=== PATIENT | male | born 1930 | race Caucasian/White ===

== ENCOUNTER 2017-11-03 05:35 | Inpatient (IN) | payer OTHER, MEDICAID ==
[~2017-11-03] VITALS: Ht 170.2 cm; Wt 61.2 kg
--- NOTE | 2017-11-03 05:35 | NUR ---
Patient BIBA BLS, transferred to bed 10. RN evaluating patient at bedside.
[2017-11-03 05:37] VITALS: BP_SYST 154; BP_DIAS 122; BP_DIAS 84
--- NOTE | 2017-11-03 05:37 | NUR ---
Dr. Salvador evaluating patient at bedside.
--- NOTE | 2017-11-03 05:38 | NUR ---
PATIENT IS A 87 Y/O MALE WHO PRESENTS TO THE ED C/O LACERATION. [facility] STATES THAT PT HAD A PAIR OF SCISSORS AND CUT UP BOTH HIS ARMS. PT APPEARS TO BE IN 10/10 ACHING BILATERAL ARM PAIN THAT DOES NOT RADIATE. PT DENIES CP, SOB, N/V/D. PT AAOX3, RR EVEN/UNLABORED. PT REPOSITIONED FOR COMFORT, BED IN LOWEST POSITION. RANDEE ELAINE NOTIFIED. WILL CONTINUE TO MONITOR. Addendum: 11/03/17 at 0603 by MEDDCV PATIENT IS A 87 Y/O MALE WHO PRESENTS TO THE ED C/O LACERATION. [facility] STATES THAT PT HAD A PAIR OF SCISSORS AND CUT UP BOTH HIS ARMS. PT APPEARS TO BE IN 10/10 ACHING BILATERAL ARM PAIN THAT DOES NOT RADIATE. PT DENIES CP, SOB, N/V/D. PT AAOX2, RR EVEN/UNLABORED. PT REPOSITIONED FOR COMFORT, BED IN LOWEST POSITION. RANDEE ELAINE NOTIFIED. WILL CONTINUE TO MONITOR. NOTED LEUNG AND PACEMAKER. Addendum: 11/03/17 at 0606 by MEDDCV PATIENT IS A 87 Y/O MALE WHO PRESENTS TO THE ED C/O LACERATION. [facility] STATES THAT PT HAD A PAIR OF SCISSORS AND CUT UP BOTH HIS ARMS. PT APPEARS TO BE IN 10/10 ACHING BILATERAL ARM PAIN THAT DOES NOT RADIATE. NOTED SKIN TEAR TO BILATERAL ARMS. R ARM DEEP TEAR TO DEEP TISSUE, BLEEDING. L ARM SKIN TEARS AND CONTROLLED BLEEDING. PUNCTURE WOUNDS POSTERIOR RIGHT FOREARM AND RIGHT HAND. PT DENIES CP, SOB, N/V/D. PT AAOX3, RR EVEN/UNLABORED. PT REPOSITIONED FOR COMFORT, BED IN LOWEST POSITION. ER MD DR. ELAINE NOTIFIED. WILL CONTINUE TO MONITOR.
[2017-11-03] MEDS ORDERED: MORPHINE SULFATE 4 MG/ML SYR IM ONE (05:45)
[2017-11-03] MEDS ORDERED: MORPHINE SULFATE 4 MG/ML SYR ONE ×2 (05:46→06:47)
[2017-11-03] MEDS ORDERED: diphenhydrAMINE 50 MG/ML VIAL ONE (05:47)
[2017-11-03] MEDS ORDERED: diphenhydrAMINE 50 MG/ML VIAL IM ONE (06:00)
--- NOTE | 2017-11-03 06:05 | NUR ---
Patient noted to have existing wounds upon arrival to ER. Wound covered with dressing. Physician informed.
--- NOTE | 2017-11-03 06:15 | NUR ---
CALLED [facility] REGARDING INQUIRING ON HOW PT GOT SCISSORS. NO RESPONSE.
[2017-11-03] MEDS ORDERED: ceFAZolin 1,000 MG VIAL ONE (06:24)
--- NOTE | 2017-11-03 06:25 | NUR ---
2ND CALL TO [facility] REGARDING INQUIRING ON HOW PT GOT SCISSORS. NO RESPONSE.
[2017-11-03 06:32] LABS: BASOPHILS % (AUTO) 0.5 % (0.0-2.0); EOSINOPHILS # (AUTO) 0.4 K/uL (0-0.4); EOSINOPHILS % (AUTO) 4.4 % (0.0-4.0); HEMATOCRIT 35.1 % (36-52); HEMOGLOBIN 11.2 g/dL (12.0-18.0); LYMPHOCYTES % (AUTO) 12.3 % (20.5-51.1); MEAN CORPUSCULAR HEMOGLOBIN 27 pg (27-31); MEAN CORPUSCULAR HGB CONC 32 g/dL (33-37); MEAN CORPUSCULAR VOLUME 85.3 fL (80-94); MONOCYTES # (AUTO) 0.7 K/uL (0.8-1.0); MONOCYTES % (AUTO) 8.7 % (1.7-9.3); NEUTROPHILS % (AUTO) 74.1 % (42.2-75.2); PLATELET COUNT (AUTO) 176 K/uL (140-450); RED BLOOD CELL COUNT(AUTO) 4.11 MIL/uL (4.20-6.10); RED CELL DISTRIBUTION WIDTH 16.5 % (11.6-13.7); WHITE BLOOD COUNT (AUTO) 8.1 K/uL (4.8-10.8)
[2017-11-03] MEDS ORDERED: BACITRACIN OINT 500 UNITS/GM PKT TP ONE ×2 (06:43→06:49)
[2017-11-03 06:53] LABS: ALBUMIN 3.4 g/dL (3.4-5.0); ASPARTATE AMINOTRANSFERASE 21 U/L (15-37); CARBON DIOXIDE 25.7 mmol/L (21-32); CHLORIDE 105 mmol/L (98-107); CREATININE 1.2 mg/dL (0.7-1.3); GLUCOSE 94 mg/dL (74-106); POTASSIUM 3.7 mmol/L (3.5-5.1); SODIUM SERUM 140 mmol/L (136-145); TOTAL BILIRUBIN 0.9 mg/dL (0.0-1.0); UREA NITROGEN, BLOOD 26 mg/dL (7-18)
--- NOTE | 2017-11-03 07:06 | NUR ---
xray at bedside
[2017-11-03] MEDS ORDERED: MORPHINE SULFATE 4 MG/ML SYR IVP ONE (07:10)
[2017-11-03] MEDS ORDERED: SYN.1 PO (07:12)
[2017-11-03] MEDS ORDERED: WARF3TAB PO (07:12)
[2017-11-03] MEDS ORDERED: METO25TE2 PO (07:12)
--- NOTE | 2017-11-03 07:13 | NUR ---
Pt report given to KYLE BRANDT. Transfer of care at this time.
--- NOTE | 2017-11-03 07:13 | NUR ---
REPORT RECEIVED FROM JEREMY BRANDT. X RAY AT BED SIDE. PT LYING IN BED AOX2 TO NAME AND PLACE. NO S/S OF PAIN OR DISTRESS. BUE REMAIN DRY CLEAN AND INTACT. GOOD PMS AND MOVING BOTH EXTREMITIES EQUALLY.
[2017-11-03 07:18] LABS: PROTHROMBIN TIME 13.7 secs (10.8-13.4)
[2017-11-03] MEDS: NACL 0.9% 1,000 ML IV SCH ×2 (07:18→23:58)
[2017-11-03] MEDS ORDERED: ACETAMINOPHEN 325 MG TAB PO PRN (07:20)
[2017-11-03] MEDS ORDERED: DOCUSATE SODIUM 100 MG GELCAP PO PRN (07:20)
[2017-11-03] MEDS ORDERED: ONDANSETRON 4 MG/2 ML VIAL IM/IVP PRN (07:20)
[2017-11-03] MEDS ORDERED: HYDROcodone/APAP 7.5/325 MG 1 TAB PO PRN (07:20)
--- NOTE | 2017-11-03 07:34 | NUR ---
EKG AT BEDSIDE [facility]
--- NOTE | 2017-11-03 08:00 | NUR ---
Patient will be admitted to care of DR MA. Admited to TELE. Will go to [id number]. Belongings list completed. Report to GREG BRANDT.
--- NOTE | 2017-11-03 08:10 | NUR ---
RECEIVED PT REPORT FROM ER NURSE. LACERATION TO BOTH ARMS. WRAPPED WITH POLLO DRESSING AT THIS TIME. PT AAOX1. NO SOB ON ROOM AIR. NO S/S OF DISTRESS NOTED. RR EVEN/UNLABORED. IV TO LEFT AC 20G, PATENT AND INTACT. SKIN WARM AND DRY TO TOUCH, COLOR WNL. CAP REFILL LESS THAN 3 SEC. INITIAL ASSESSMENT COMPLETED, MRSA DONE. PT HAS LEUNG LEG BAG. PLAN OF CARE DISCUSSED WITH PT, REINFORCEMENT NEEDED. ALL SAFETY PRECAUTIONS MET, BOARD UPDATED, CALL LIGHT WITHIN REACH, WILL CONTINUE TO MONITOR.
[2017-11-03 08:30] VITALS: BP 145/81
--- NOTE | 2017-11-03 08:30 | NUR ---
RIGHT ARM SEEMS STILL BLEEDING. REWRAPPED DRESSING WITH ADAPTIC AND XEROFOAM AND POLLO AND SOL BANDAGE. PIC OF RIGHT ARM TAKEN. LEFT ARM DRESSING IS CLEAN AND DRY. NO DRESSING CHANGE FOR LEFT ARM PERFORMED AT THIS TIME
[2017-11-03 08:50] LABS: CHOL/HDL RATIO 2.9 (1-4.5); FREE T4 (FREE THYROXINE) 1.23 ng/dL (0.76-1.46); MAGNESIUM 1.8 mg/dL (1.8-2.4); PHOSPHORUS 3.4 mg/dL (2.5-4.9); THYROID STIMULATING HORMONE 1.64 uIU/mL (0.34-3.74)
--- NOTE | 2017-11-03 08:57 | NUR ---
PATIENT HAS BEEN SCREENED AND CATEGORIZED HIGH NUTRITION RISK. PATIENT WILL BE SEEN WITHIN 1-2 DAYS OF ADMISSION. 11/03/17-11/04/[address]
[2017-11-03] MEDS ORDERED: PANTOPRAZOLE 40 MG TABEC PO SCH (09:00)
--- NOTE | 2017-11-03 09:10 | NUR ---
SWITCH LEG BAG TO A STANDARD LEUNG CATH BAG. URINE IS CLOUDY YELLOW. SENT URINE SPECIMEN TO LAB.
[2017-11-03 11:04] LABS: APPEARANCE,URINE CLOUDY (CLEAR); BILIRUBIN,URINE NEGATIVE (NEGATIVE); BLOOD, URINE 1+ (NEGATIVE); COLOR,URINE YELLOW (YELLOW); LEUKOCYTE ESTERASE ,URINE 3+ (NEGATIVE); NITRITE, URINE POSITIVE (NEGATIVE); UGLUCOSE NEGATIVE (NEGATIVE)
[2017-11-03 11:11] LABS: WBC,URINE 20-60 /HPF (0-5)
[2017-11-03 11:12] LABS: RBC,URINE 0-5 (RARE) /HPF (0-5)
[2017-11-03 12:00] VITALS: BP_SYST 108; BP_SYST 138; BP_DIAS 54; BP_DIAS 77
--- NOTE | 2017-11-03 12:32 | NUR ---
Social Service Note: I called [facility] multiple times to obtain information about patient, no answer, no answering machine, unable to leave message. Wood Window And Door Craftsman and/or Veterinary Medicine Teacher will continue to follow up.
[2017-11-03 16:00] VITALS: BP 169/99
[2017-11-03] MEDS ORDERED: METOPROLOL 25 MG TAB PO SCH (16:40)
--- NOTE | 2017-11-03 16:50 | NUR ---
PT TRYING TO GET OF OUT OF BED, TOLD PT TO STAY IN BED AND LYING DOWN. PT IS CONFUSED. PT IS STILL COOPERATIVE. NO S/S OF AGITATION.
[2017-11-03] MEDS ORDERED: METOPROLOL 25 MG TAB ONE (17:56)
[2017-11-03] MEDS: WARFARIN 1 MG TAB PO SCH (18:29)
--- NOTE | 2017-11-03 18:40 | NUR ---
PT TRYING TO GET OUT OF BED. PLACE PT BACK TO BED. CHECKED IV, FLUSHED WELL, BLOOD RETURN GOOD.
--- NOTE | 2017-11-03 19:50 | NUR ---
RECEIVED PATIENT LYING BED TRYING TO GET OUT OF BED. BED IN LOW POSITION WITH CALL LIGHT WITHIN REACH.BED ALARM ON. CHECK BP 127/59. METROPOLOL 25 MG. NOT GIVEN. RETURN TO [facility]. WILL CONTINUE TO MONITOR.
--- NOTE | 2017-11-03 19:59 | NUR ---
ENDORSED PT TO RISK AND COMPLIANCE ANALYTICS DIRECTOR RN. PT IN STABLE CONDITION. GAVE METOPROLOL 25MG TO RISK AND COMPLIANCE ANALYTICS DIRECTOR, PLEASE VERIFIED BP BEFORE GIVING IT. Addendum: 11/03/17 at 2000 by Douglas Aguilera RN TIME OF ENDORSEMENT IS 1929
[2017-11-03 20:00] VITALS: BP 127/59
[2017-11-03] MEDS: CLINDAMYCIN PHOS. 600MG/D5W PM 50 ML IV SCH (20:58)
--- NOTE | 2017-11-03 21:40 | NUR ---
SEEN PATIENT LYING ASLEEP ON BED. FALL PRECAUTION IMPLEMENTED. CALL LIGHTS WITHIN REACH. WILL CONTINUE TO MONITOR.
--- NOTE | 2017-11-03 22:53 | NUR ---
RESIDENT NOTIFIED TO ORDER MRSA NARES IN THE SYSTEM. SPECIMEN ALREADY IN THE LAB.
[2017-11-04] VITALS: BP 138/89
--- NOTE | 2017-11-04 01:14 | NUR ---
SEEN PATIENT ASLEEP ON BED BUT EASILY AROUSABLE. FALL PRECAUTION IMPLEMENTED. CALL LIGHT WITHIN REACH. WILL CONTINUE TO MONITOR.
[2017-11-04] MEDS: NACL 0.9% 1,000 ML IV SCH (02:42)
--- NOTE | 2017-11-04 03:16 | NUR ---
SEEN PATIENT ASLEEP. FALL PRECAUTION IMPLEMENTED. CALL LIGHT WITHIN REACH.
[2017-11-04 04:00] VITALS: BP 123/68
--- NOTE | 2017-11-04 05:00 | NUR ---
PICTURE TAKEN ON THE LEFT HAND. WOUND COVERED WITH XEROFORM AND KERLIX. PATIENT WAS COOPERATIVE DURING THE TREATMENT AND TOLERATED WELL.
[2017-11-04] MEDS: CLINDAMYCIN PHOS. 600MG/D5W PM 50 ML IV SCH ×3 (05:18→20:36)
[2017-11-04] MEDS: PANTOPRAZOLE 40 MG TABEC PO SCH (06:25)
[2017-11-04] MEDS: LEVOTHYROXINE 0.1 MG TAB PO SCH (06:25)
--- NOTE | 2017-11-04 07:13 | NUR ---
ENDORSED PATIENT TO AM SHIFT NURSE FOR CONTINUITY OF CARE. PATIENT IN STABLE CONDITION.
--- NOTE | 2017-11-04 07:30 | NUR ---
RECEIVED PATIENT REPORT FROM ARMORED TRANSPORT SERVICE MANAGER RN. PT IS AWAKE, ALERT, OX1. NO S/S OF ACUTE DISTRESS ON RM AIR. IV NOTED TO THE LEFT AC 22G, INFUSING WELL, ASYMPTOMATIC. LEUNG DRAINING CLOUDY YELLOW URINE. VITALS TAKEN. INITIAL ASSESSMENT DONE. FALL PRECAUTIONS IN PLACE. BED IN LOW POSITION. WILL WILL CONTINUE TO MONITOR.
[2017-11-04 08:00] VITALS: BP 148/89
--- NOTE | 2017-11-04 09:00 | NUR ---
DR HINOJOSA HAS WRAPPED THE DRESSING FOR THE RIGHT ARM.
[2017-11-04] MEDS: METOPROLOL SUCCINATE 50 MG TABER PO SCH (09:02)
[2017-11-04 09:25] LABS: ANION GAP 12.9 (8-16); CARBON DIOXIDE 25.1 mmol/L (21-32); CHLORIDE 104 mmol/L (98-107); GLUCOSE 77 mg/dL (74-106); SODIUM SERUM 138 mmol/L (136-145); UREA NITROGEN, BLOOD 20 mg/dL (7-18)
[2017-11-04 09:26] LABS: PROTHROMBIN TIME 19.2 secs (10.8-13.4)
[2017-11-04 09:28] LABS: MAGNESIUM 1.8 mg/dL (1.8-2.4); PHOSPHORUS 3.2 mg/dL (2.5-4.9)
[2017-11-04 09:34] LABS: BASOPHILS # (AUTO) 0.1 K/uL (0.00-0.22); BASOPHILS % (AUTO) 1.6 % (0.0-2.0); EOSINOPHILS # (AUTO) 0.4 K/uL (0-0.4); EOSINOPHILS % (AUTO) 5.2 % (0.0-4.0); HEMOGLOBIN 11.3 g/dL (12.0-18.0); LYMPHOCYTES # (AUTO) 1.2 K/uL (2.0-11.5); MEAN CORPUSCULAR HEMOGLOBIN 28 pg (27-31); MEAN CORPUSCULAR HGB CONC 33 g/dL (33-37); MEAN CORPUSCULAR VOLUME 84.5 fL (80-94); MONOCYTES # (AUTO) 0.5 K/uL (0.8-1.0); MONOCYTES % (AUTO) 7.6 % (1.7-9.3); NEUTROPHILS # (AUTO) 4.8 K/uL (1.8-7.7); NEUTROPHILS % (AUTO) 68.5 % (42.2-75.2); RED BLOOD CELL COUNT(AUTO) 4.03 MIL/uL (4.20-6.10)
[2017-11-04 10:02] LABS: LYMPHOCYTES % (AUTO) 17.1 % (20.5-51.1); PLATELET COUNT (AUTO) 163 K/uL (140-450)
[2017-11-04 12:00] VITALS: BP 147/75
--- NOTE | 2017-11-04 12:08 | NUR ---
PT EATING LUNCH, NO S/S OF ACUTE DISTRESS NOTED.
[2017-11-04 12:10] LABS: T4 (THYROXINE) 8.4 ug/dL (4.5-12.0)
--- NOTE | 2017-11-04 14:10 | NUR ---
11/04/17 RD INITIAL ASSESSMENT COMPLETED. PLEASE REFER TO NUTRITION ASSESSMENT UNDER CARE ACTIVITY FOR ESTIMATED NUTRITIONAL NEEDS. RD RECOMMENDATIONS: 1- RECOMMEND CONTINUE CURRENT DIET SOFT - PT TOLERATING WELL AND SUFFICIENT TO MEET ESTIMATED NEEDS 2- FDI EDUCATIONAL MATERIAL LEFT BY PT'S BEDSIDE 3- F/U 5-7 DAYS; LOW RISK ROXY GRAY MBA, RD
[2017-11-04 16:00] VITALS: BP 108/72
--- NOTE | 2017-11-04 16:20 | NUR ---
HELPED PT AMB TO RESTROOM. PT SAT DOWN ON TOILET FOR 1 MIN, NO BM. HELPED PT AMB BACK TO BED.
[2017-11-04] MEDS: WARFARIN 1 MG TAB PO SCH (16:47)
--- NOTE | 2017-11-04 19:25 | NUR ---
PT REPORT GIVEN TO BOX PULLER NURSE AT BEDSIDE. PATIENT IS IN STABLE CONDITION
--- NOTE | 2017-11-04 19:26 | NUR ---
RECEIVED PT REPORT FROM DAY NURSE GREG. PT IN STABLE CONDITION, NO S/S OF DISTRESS NOTED. PT HAS LACERATION TO BOTH ARMS. WRAPPED WITH POLLO DRESSING AT THIS TIME. DRESSINGS DRY AND INTACT.PT AAOX1. NO SOB ON ROOM AIR. NO S/S OF DISTRESS NOTED. RR EVEN/UNLABORED. IV TO LEFT AC 20G, PATENT AND INTACT. SKIN WARM AND DRY TO TOUCH, COLOR WNL. CAP REFILL LESS THAN 3 SEC. INITIAL ASSESSMENT COMPLETED. PT HAS LEUNG LEG BAG. PLAN OF CARE DISCUSSED WITH PT, REINFORCEMENT NEEDED. ALL SAFETY PRECAUTIONS MET, BOARD UPDATED, CALL LIGHT WITHIN REACH, WILL CONTINUE TO MONITOR.
[2017-11-04 20:00] VITALS: BP 144/65
--- NOTE | 2017-11-04 21:00 | NUR ---
PT AGITATED TRYING TO GET OUT OF BED, BED ALARM IN PLACE, REMINDED PT HE IS IN HOSPITAL AND TO STAY IN BED, PT SWINGING HIS ARMS AT ME AND SECURITY ORDERLY AND YELLING, "NO"; PT REPEATING TO LOOK OUT FOR THE MAN THAT'S COMING
--- NOTE | 2017-11-04 21:15 | NUR ---
BED ALARM WENT OFF AGAIN. PT TRYING TO GET OUT OF BED, PUT PT BACK IN BED, PT STILL YELLING THAT HE IS NEEDING TO PUT ON PANTS AND GO TO WHERE THE MAN IS.
--- NOTE | 2017-11-04 21:35 | NUR ---
PT STILL TRYING TO GET OUT OF BED, TOLD PT HE NEEDS TO STAY IN BED BECAUSE HE IS A FALL RISK, PT STATES HE IS GOING TO AND ITS OKAY IF HE FALLS. I EXPLAINED TO PT HE IS IN HOSPITAL AND IT IS NOT OKAY IF HE FALLS AND HIS SAFETY IS OF OUR IMPORTANCE. PT STATES, "OH OKAY" AND GOT BACK INTO BED
--- NOTE | 2017-11-04 23:30 | NUR ---
PT RESTING COMFORTABLY IN BED, NO S/S OF DISTRESS NOTED.
[2017-11-05] VITALS: BP 132/62
--- NOTE | 2017-11-05 01:00 | NUR ---
PT RESTING COMFORTABLY IN BED, NO S/S OF DISTRESS NOTED.
--- NOTE | 2017-11-05 02:00 | NUR ---
PT RESTING COMFORTABLY IN BED, NO S/S OF DISTRESS NOTED.
[2017-11-05 04:00] VITALS: BP 143/68
--- NOTE | 2017-11-05 04:59 | NUR ---
PT RESTING COMFORTABLY IN BED, NO S/S OF DISTRESS NOTED.
[2017-11-05] MEDS: CLINDAMYCIN PHOS. 600MG/D5W PM 50 ML IV SCH ×3 (05:04→20:38)
[2017-11-05] MEDS: PANTOPRAZOLE 40 MG TABEC PO SCH (05:35)
[2017-11-05] MEDS: LEVOTHYROXINE 0.1 MG TAB PO SCH (05:35)
[2017-11-05 05:59] LABS: BASOPHILS # (AUTO) 0.1 K/uL (0.00-0.22); BASOPHILS % (AUTO) 0.8 % (0.0-2.0); EOSINOPHILS # (AUTO) 0.4 K/uL (0-0.4); HEMATOCRIT 32.2 % (36-52); HEMOGLOBIN 10.4 g/dL (12.0-18.0); LYMPHOCYTES # (AUTO) 1.2 K/uL (2.0-11.5); LYMPHOCYTES % (AUTO) 18.9 % (20.5-51.1); MEAN CORPUSCULAR HEMOGLOBIN 28 pg (27-31); MEAN CORPUSCULAR HGB CONC 32 g/dL (33-37); MEAN CORPUSCULAR VOLUME 85.6 fL (80-94); MONOCYTES # (AUTO) 0.6 K/uL (0.8-1.0); MONOCYTES % (AUTO) 9.6 % (1.7-9.3); NEUTROPHILS # (AUTO) 4.2 K/uL (1.8-7.7); NEUTROPHILS % (AUTO) 64.7 % (42.2-75.2); PLATELET COUNT (AUTO) 152 K/uL (140-450); RED BLOOD CELL COUNT(AUTO) 3.77 MIL/uL (4.20-6.10); RED CELL DISTRIBUTION WIDTH 15.6 % (11.6-13.7); WHITE BLOOD COUNT (AUTO) 6.5 K/uL (4.8-10.8)
[2017-11-05 06:17] LABS: PROTHROMBIN TIME 23.1 secs (10.8-13.4)
[2017-11-05] MEDS: NACL 0.9% 1,000 ML IV SCH (06:28)
[2017-11-05 06:40] LABS: CARBON DIOXIDE 25.4 mmol/L (21-32); CHLORIDE 104 mmol/L (98-107); GLUCOSE 96 mg/dL (74-106); POTASSIUM 3.4 mmol/L (3.5-5.1); SODIUM SERUM 138 mmol/L (136-145); UREA NITROGEN, BLOOD 25 mg/dL (7-18)
[2017-11-05 06:41] LABS: CREATININE 1.1 mg/dL (0.7-1.3)
[2017-11-05 06:45] LABS: MAGNESIUM 1.7 mg/dL (1.8-2.4); PHOSPHORUS 3.3 mg/dL (2.5-4.9)
--- NOTE | 2017-11-05 07:22 | NUR ---
REPORT GIVEN TO DAY NURSE DEVANTE RN FOR CONTINUITY OF CARE, PT IN STABLE CONDITION. NO S/S OF DISTRESS NOTED
--- NOTE | 2017-11-05 07:25 | NUR ---
RECEIVED REPORT FROM HI LIFT OPERATOR NURSE. PT IS RESTING IN BED. AAOX1-2, CONFUSED, PT HAS BOTH ARMS WRAPPED WITH DRESSING AT THIS TIME, PT IV ON THE LEFT AC IS LEAKING, WILL DISCONTINUE AT START A NEW IV. NO S/S OF RESPIRATORY DISTRESS OR DISCOMFORT NOTED, DISCUSSED PLAN OF CARE WITH PT, PT VERBALIZED UNDERSTANDING, SAFETY/FALL PRECAUTIONS ARE IN PLACE, CALL LIGHT IS WITHIN REACH, WILL CONTINUE TO MONITOR.
[2017-11-05 08:00] VITALS: BP 125/75
[2017-11-05] MEDS ORDERED: LEVOFLOXACIN 500 MG/D5W PREMIX 100 ML IV SCH (09:00)
[2017-11-05] MEDS ORDERED: POTASSIUM CHLORIDE 10 MEQ TABER PO SCH (09:05)
[2017-11-05] MEDS: METOPROLOL SUCCINATE 50 MG TABER PO SCH (09:05)
--- NOTE | 2017-11-05 09:30 | NUR ---
NEW IV STARTED ON THE LEFT UPPER ARM, # 20 G, PT TOLERATED WELL.
--- NOTE | 2017-11-05 10:15 | NUR ---
PT REMOVED DRESSING FROM BOTH ARMS. PT'S ARMS WERE WRAPPED WITH NEW DRESSING. PT IS CONFUSED AND NEEDS REINFORCEMENT.
--- NOTE | 2017-11-05 12:10 | NUR ---
ENDORSED PT TO RIKKI GASTON. FOR CONTINUITY OF CARE. PT IS STABLE BUT STILL CONFUSED ATTEMPTING TO REMOVE DRESSING FROM BILATERAL UPPER ARMS. TEACHING REINFORCEMENT GIVEN.
--- NOTE | 2017-11-05 12:19 | NUR ---
RECEIVED REPORT FROM RIKKI LOW. PATIENT IN LYING BED ALERT AND CONFUSED.BOTH ARM COVERED WITH BANDAGE WITHOUT DRAINAGE.INTACT AND CLEAN.KEPT ON LEUNG CATH INTACT AND CLEAN,YELLOW COLOR URINE.CALL LIGHT WITHIN REACH.WILL CONTINUE TO MONITORING.
[2017-11-05 13:30] VITALS: BP 133/74
[2017-11-05] MEDS ORDERED: LORazepam 1 MG TAB PO SCH (14:19)
--- NOTE | 2017-11-05 14:33 | NUR ---
PATIENT SITTING BED EDGE TO TRY TO GETTING OUT OF BED.ALERT AND VERY CONFUSED.NOTIFIED DR AND GIVEN PRN MED ATIVEN 1MG PO.WILL CONTINUE TO MONITORING.
[2017-11-05] MEDS ORDERED: MAGNESIUM OXIDE 400 MG TAB PO SCH (14:36)
--- NOTE | 2017-11-05 14:39 | NUR ---
CM NOTE INITIAL REVIEW DONE.
[2017-11-05 16:35] VITALS: BP 102/60
[2017-11-05] MEDS: WARFARIN 1 MG TAB PO SCH (16:57)
--- NOTE | 2017-11-05 16:59 | NUR ---
GIVEN ATIVAN AND KAMERON PO TOLERATED WELL.PATIENT STILL ANXIETY SUCH HIT STAFF AND GET OUT OF BED NOTIFIED DR AND RECEIVED NEW ORDER.WILL CONTINUE TO MONITORING CLOSELY.
[2017-11-05] MEDS ORDERED: chlorproMAZINE 25 MG/ML AMP IM SCH ×2 (17:04→17:12)
[2017-11-05] MEDS ORDERED: HALOPERIDOL IM 5 MG/ML VIAL IM ONE (17:10)
--- NOTE | 2017-11-05 17:40 | NUR ---
PATIENT IS VERY ANXIETY STANDING NEXT BED TRY TO HIT STAFF AND SPIT TO STAFF. TWO RN HOLD PATIENT AND TRY TO PUT IN BACK TO BED.NOTIFIED DR AND RECEIVED NEW ORDER.CONTINUE MONITORING PATIENT'S BEHAVIOR CLOSELY.
--- NOTE | 2017-11-05 19:30 | NUR ---
RECEIVED PATIENT LYING ON BED. FALL PRECAUTION IMPLEMENTED. CALL LIGHT WITHIN REACH. WILL CONTINUE TO MONITOR.
[2017-11-05 20:00] VITALS: BP 148/85
--- NOTE | 2017-11-05 21:45 | NUR ---
SEEN PATIENT LYING ASLEEP ON BED. FALL PRECAUTION IMPLEMENTED. CALL LIGHT WITHIN REACH.
[2017-11-06] VITALS: BP 125/85
--- NOTE | 2017-11-06 01:05 | NUR ---
SEEN PATIENT ASLEEP ON BED.CALL LIGHT WITHIN REACH. FALL PRECAUTION IMPLEMENTED. WILL CONTINUE TO MONITOR.
[2017-11-06] MEDS: NACL 0.9% 1,000 ML IV SCH ×2 (01:32→18:20)
[2017-11-06 04:00] VITALS: BP 134/74
--- NOTE | 2017-11-06 04:15 | NUR ---
SEEN PATIENT ASLEEP ON BED. CALL LIGHT WITHIN REACH.FALL PRECAUTION IMPLEMENTED. NO S/S OF DISTRESS NOTED AT THIS TIME.
[2017-11-06] MEDS: CLINDAMYCIN PHOS. 600MG/D5W PM 50 ML IV SCH ×3 (05:30→21:16)
[2017-11-06] MEDS: PANTOPRAZOLE 40 MG TABEC PO SCH (06:10)
[2017-11-06] MEDS: LEVOTHYROXINE 0.1 MG TAB PO SCH (06:10)
--- NOTE | 2017-11-06 07:10 | NUR ---
ENDORSED PATIENT TO AM SHIFT NURSE FOR CONTINUITY OF CARE. PATIENT IN STABLE CONDITION.
--- NOTE | 2017-11-06 07:12 | NUR ---
RECEIVED BEDSIDE REPORT FROM MANAGER LAB NURSE. PATIENT IS SLEEPING. IV ON L AC 20G INFUSING NS AT 60ML/HR. IV IS CLEAN, DRY AND INTACT. SKIN IS NON INTACT. BILATERAL UPPER EXTREMITIES WITH SELF INFLICTED WOUNDS. BANDAGE IS CLEAN AND DRY. LEUNG IS PRESENT. TELE MONITOR IN PLACE. BED IN LOW POSITION. CALL LIGHT WITHIN REACH, WILL CONTINUE TO MONITOR PATIENT.
[2017-11-06 07:25] LABS: ANION GAP 12.9 (8-16); BASOPHILS # (AUTO) 0.1 K/uL (0.00-0.22); CARBON DIOXIDE 25.9 mmol/L (21-32); CHLORIDE 106 mmol/L (98-107); CREATININE 0.9 mg/dL (0.7-1.3); EOSINOPHILS # (AUTO) 0.3 K/uL (0-0.4); EOSINOPHILS % (AUTO) 6.5 % (0.0-4.0); GLUCOSE 97 mg/dL (74-106); HEMATOCRIT 32.8 % (36-52); HEMOGLOBIN 10.8 g/dL (12.0-18.0); LYMPHOCYTES # (AUTO) 0.8 K/uL (2.0-11.5); LYMPHOCYTES % (AUTO) 16.2 % (20.5-51.1); MAGNESIUM 1.7 mg/dL (1.8-2.4); MEAN CORPUSCULAR HEMOGLOBIN 28 pg (27-31); MEAN CORPUSCULAR HGB CONC 33 g/dL (33-37); MEAN CORPUSCULAR VOLUME 84.3 fL (80-94); MONOCYTES # (AUTO) 0.5 K/uL (0.8-1.0); MONOCYTES % (AUTO) 10.5 % (1.7-9.3); NEUTROPHILS # (AUTO) 3.5 K/uL (1.8-7.7); NEUTROPHILS % (AUTO) 64.8 % (42.2-75.2); PLATELET COUNT (AUTO) 155 K/uL (140-450); POTASSIUM 3.8 mmol/L (3.5-5.1); RED BLOOD CELL COUNT(AUTO) 3.89 MIL/uL (4.20-6.10); SODIUM SERUM 141 mmol/L (136-145); UREA NITROGEN, BLOOD 17 mg/dL (7-18); WHITE BLOOD COUNT (AUTO) 5.2 K/uL (4.8-10.8)
[2017-11-06 07:38] LABS: PROTHROMBIN TIME 26.8 secs (10.8-13.4)
[2017-11-06 08:00] VITALS: BP 135/89
[2017-11-06] MEDS: METOPROLOL SUCCINATE 50 MG TABER PO SCH (09:00)
--- NOTE | 2017-11-06 09:01 | NUR ---
ADMINISTERED MORNING MED. PATIENT TOLERATED MED WELL. BED IN LOW POSITION. CALL LIGHT WITHIN REACH, WILL CONTINUE TO MONITOR PATIENT.
--- NOTE | 2017-11-06 10:30 | NUR ---
PATIENT IS SLEEPING. NO SIGNS OF DISTRESS ON ROOM AIR. BED IN LOW POSITION. CALL LIGHT WITHIN REACH. WILL CONTINUE TO MONITOR PATIENT.
--- NOTE | 2017-11-06 11:30 | NUR ---
WOUND CARE NURSEREBECCA, AT BEDSIDE. WOUND ASSESSMENT AND DRESSING CHANGES BEING PERFORMED. WILL CONTINUE TO MONITOR PATIENT.
[2017-11-06 12:00] VITALS: BP 140/68
--- NOTE | 2017-11-06 12:20 | NUR ---
WOUND CARE EVALUATION NOTES: REASON FOR EVALUATION: MULTIPLE WOUNDS SKIN ASSESSMENT DONE ON THIS 87 Y/O MALE PATIENT ADMITTED TO [facility], WITH INITIAL DIAGNOSIS OF UPPER ARMS LACERATIONS. PAST MEDICAL HISTORY INCLUDE DEMENTIA, A-FIB, HTN, CVA AND HYPOTHYROIDISM. ALL ABOVE INFORMATION WAS OBTAINED FROM THE ADMISSION H&P. LABS ARE WBC 5.2, H/H 10.8/32.8 GLUCOSE 97, ALBUMIN 3.4.PATIENT IS AWAKE, ALERT, AND ABLE TO FOLLOW SIMPLE COMMANDS. SKIN WARM TO TOUCH , THICKENED TOENAILS, BLE NO EDEMA, NO HAIR GROWTH AND BILATERAL PEDAL PULSES PRESENT. NEEDS ASSISTANCE IN TURNING. PLAN OF CARE AND PRESSURE PREVENTIVE MEASURES DISCUSSED WITH PT AND PRIMARY NURSE. PT ABLE TO VERBALIZE UNDERSTANDING AT THIS TIME. WILL REINFORCE TEACHING. INTEGUMENTARY: LEFT FOREARM SKIN LACERATIONS 3X5X0.1, WOUND BED RED WITH SMALL AMOUNT OF SANGUINOUS DRAINAGE, NO ODOR LEFT LOWER THIGH AND LEG WITH MULTIPLE SKIN TEARS WITH LARGEST 5CMX0.1 CM IN LENGTH WOUND BED IS RED AND DRY RIGHT FOREARM MULTIPLE LACERATIONS ANTERIOR AND POSTERIOR WITH LARGEST ON ANTERIOR 13X5X0.2CM WOUND BED IS RED, SMALL AMOUNT SANGUINOUS DRAINAGE, NO ODOR, WOUND EDGE IS IRREGULAR, CATHERINE-WOUND WITH ERYTHEMA AND VERY THIN SKIN INTACT. RECOMMENDATIONS: -PLEASE SOAK OLD DRESSING WITH NS BEFORE REMOVING IT. -CLEANSE BILATERAL UE WOUNDS AND LEFT LE MULTIPLE SKIN TEARS WITH NS AND GAUZE, PAT DRY, APPLY HYDROGEL,COVER WITH ADAPTIC AND DRY DRESSING WRAP WITH KERLIX ROLLS, SECURE WITH TAPE Q DAY AND PRN IF SOILING -TURN AND REPOSITION PATIENT Q2H -ASSESS AND MONITOR SKIN CONDITION DURING POSITION CHANGE, PLEASE PAY ATTENTION TO BILATERAL UE -OFFLOAD BILATERAL HEELS BY PLACING PILLOWS UNDER CALVES AT ALL TIMES, UNLESS OTHERWISE CONTRAINDICATED -PRESSURE REDISTRIBUTION SURFACE THERAPY -KEEP SKIN CLEAN AND DRY AT ALL TIMES. -APPLY BODY LOTION TO DRY SKIN AREAS QD RECOMMENDATIONS DISCUSSED WITH PRIMARY RN AND DR. ZAIDI WILL FOLLOW UP PATIENT Q 7 -10 DAYS AND PRN. PLEASE CONTACT WOUND CARE NURSE FOR ANY QUESTION OR CHANGES IN WOUND CONDITION
--- NOTE | 2017-11-06 12:40 | NUR ---
ADMINISTERED MED. PATIENT TOLERATING WELL. IV IS CLEAN, DRY, AND INTACT. TRADE ECONOMIST IS FEEDING PATIENT. WILL CONTINUE TO MONITOR PATIENT.
[2017-11-06] MEDS ORDERED: QUEtiapine FUMARATE 25 MG TAB PO SCH (14:01)
[2017-11-06] MEDS ORDERED: MAG SULF 2000 MG/WATER PREMIX 50 ML IV SCH (14:02)
--- NOTE | 2017-11-06 14:54 | NUR ---
ADMINISTERED MEDS ORDERED. PATIENT TOLERATING WELL. IV IS CLEAN DRY AND INTACT. PATIENT HAS NO COMPLAINTS AT THIS TIME. BED IN LOW POSITION. CALL LIGHT WITHIN REACH. WILL CONTINUE TO MONITOR PATIENT.
--- NOTE | 2017-11-06 15:16 | NUR ---
Effie SPOKE WITH ESTEE AT [facility] AND SHE STATED THAT PT WAS IN THEIR DEMENTIA UNIT FOR A FEW DAYS PRIOR TO PT BEING TRANSFERRED TO [facility]. STATED THAT SHE DOES NOT ALLOW ANYTHING IN THE UNIT THAT MAY BE HARMFUL TO RESIDENTS OR THAT THEY COULD HARM OTHERS WITH. PER ESTEE THE FAMILY BROUGHT IN THE SCISSORS THAT PT HURT HIMSELF WITH. PER ESTEE THE FAMILY HAVE INDICATED THAT THEY DO NOT WANT THE PT TO RETURN TO THEIR FACILITY.
[2017-11-06 16:00] VITALS: BP 164/76
[2017-11-06] MEDS: WARFARIN 1 MG TAB PO SCH (16:46)
--- NOTE | 2017-11-06 16:50 | NUR ---
PATIENT IS AWAKE. NO COMPLAINTS AT THIS TIME. ADMINISTERED ORDERED MEDS. PATIENT TOLERATED MEDS WELL. REPOSITIONED THE PATIENT WITH THE CAN SOLDERER. NO SIGNS OF DISTRESS ON ROOM AIR. BED IN LOW POSITION. CALL LIGHT WITHIN REACH. WILL CONTINUE TO MONITOR THE PATIENT.
--- NOTE | 2017-11-06 18:21 | NUR ---
PATIENT BEING FED BY PSYCHIATRIC ATTENDANT. NO SIGNS OF DISTRESS AT THIS TIME. WILL CONTINUE TO MONITOR THE PATIENT.
--- NOTE | 2017-11-06 19:15 | NUR ---
GAVE BEDSIDE REPORT TO SENIOR CUSTOMER SERVICE REPRESENTATIVE NURSE. ENDORSED PATIENT IN STABLE CONDITION.
--- NOTE | 2017-11-06 19:15 | NUR ---
RECEIVED PATIENT REPORT AT BEDSIDE. PATIENT ASLEEP BUT AROUSABLE. PATIENT IS ALERT BUT ONLY ORIENTED TO SELF. NO S/S OF DISTRESS NOTED. PATIENT IS ON ROOM AIR. WOUND DRESSINGS NOTED TO BUE. DRESSINGS CLEAN DRY AND INTACT. LEUNG CATHETER IN PLACE. PATIENT ON TELE MONITORING. FALL PRECAUTIONS IN PLACE. WILL CONTINUE TO MONITOR
[2017-11-06 20:00] VITALS: BP 173/69
--- NOTE | 2017-11-06 20:10 | NUR ---
NOTIFIED DR GILMAN ABOUT PATIENT'S ELEVATED BP. NO S/S OF DISTRESS NOTED
[2017-11-06] MEDS: QUEtiapine FUMARATE 25 MG TAB PO SCH (21:18)
[2017-11-07] VITALS: BP 141/67
--- NOTE | 2017-11-07 02:11 | NUR ---
PATIENT ASLEEP IN BED. NO S/S OF DISTRESS NOTED
[2017-11-07 04:00] VITALS: BP 107/62
--- NOTE | 2017-11-07 04:30 | NUR ---
PATIENT ASLEEP IN BED. NO S/S OF DISTRESS
[2017-11-07] MEDS: CLINDAMYCIN PHOS. 600MG/D5W PM 50 ML IV SCH ×2 (04:50→12:56)
[2017-11-07] MEDS: LEVOTHYROXINE 0.1 MG TAB PO SCH (06:33)
[2017-11-07] MEDS: PANTOPRAZOLE 40 MG TABEC PO SCH (06:33)
[2017-11-07 06:47] LABS: ANION GAP 13.1 (8-16); CARBON DIOXIDE 23.8 mmol/L (21-32); CHLORIDE 105 mmol/L (98-107); GLUCOSE 104 mg/dL (74-106); POTASSIUM 3.9 mmol/L (3.5-5.1); SODIUM SERUM 138 mmol/L (136-145); UREA NITROGEN, BLOOD 16 mg/dL (7-18)
[2017-11-07 06:53] LABS: BASOPHILS % (AUTO) 0.5 % (0.0-2.0); EOSINOPHILS # (AUTO) 0.1 K/uL (0-0.4); EOSINOPHILS % (AUTO) 1.7 % (0.0-4.0); HEMATOCRIT 30.7 % (36-52); HEMOGLOBIN 9.9 g/dL (12.0-18.0); LYMPHOCYTES # (AUTO) 1.2 K/uL (2.0-11.5); LYMPHOCYTES % (AUTO) 16.2 % (20.5-51.1); MAGNESIUM 1.9 mg/dL (1.8-2.4); MEAN CORPUSCULAR HEMOGLOBIN 27 pg (27-31); MEAN CORPUSCULAR HGB CONC 32 g/dL (33-37); MONOCYTES # (AUTO) 0.8 K/uL (0.8-1.0); MONOCYTES % (AUTO) 10.8 % (1.7-9.3); NEUTROPHILS # (AUTO) 5.3 K/uL (1.8-7.7); NEUTROPHILS % (AUTO) 70.8 % (42.2-75.2); PLATELET COUNT (AUTO) 152 K/uL (140-450); RED BLOOD CELL COUNT(AUTO) 3.62 MIL/uL (4.20-6.10); RED CELL DISTRIBUTION WIDTH 15.8 % (11.6-13.7); WHITE BLOOD COUNT (AUTO) 7.4 K/uL (4.8-10.8)
--- NOTE | 2017-11-07 07:25 | NUR ---
PATIENT REPORT GIVEN AT BEDSIDE. PATIENT ENDORSED IN STABLE CONDITION
--- NOTE | 2017-11-07 07:26 | NUR ---
RECEIVED BEDSIDE REPORT FROM RAWHIDE BONE ROLLER NURSE. PATIENT IS CURRENTLY SLEEPING, EASILY AROUSABLE. L AC 20 G INFUSING NS AT 60ML/HR. IV IS CLEAN, DRY AND INTACT. SKIN IS NON INTACT, BUE SELF INFLICTED LACERATIONS . BANDAGES ARE CLEAN AND DRY, HE IS BED BOUND. BED ALARM IS ON. FALL PRECAUTIONS IN PLACE. LEUNG IN PLACE. SCDS IN PLACE. TELE MONITOR IN PLACE. BED IN LOW POSITION. CALL LIGHT WITHIN REACH. WILL CONTINUE TO MONITOR THE PATIENT.
[2017-11-07 08:00] VITALS: BP 152/92
[2017-11-07 09:06] LABS: PROTHROMBIN TIME 32.6 secs (10.8-13.4)
[2017-11-07] MEDS: QUEtiapine FUMARATE 25 MG TAB PO SCH ×2 (09:17→21:06)
[2017-11-07] MEDS: METOPROLOL SUCCINATE 50 MG TABER PO SCH (09:17)
--- NOTE | 2017-11-07 09:26 | NUR ---
ADMINISTERED MORNING MEDS. PATIENT TOLERATED WELL. WILL AWAIT THE HYDROGEL FROM PHARMACY FOR THE WOUND CARE. WILL CONTINUE TO MONITOR THE PATIENT.
[2017-11-07] MEDS: SKINTEGRITY HYDROGEL TP SCH (10:11)
--- NOTE | 2017-11-07 10:50 | NUR ---
PERFORMED WOUND CARE ON BUE AND LLE. SOAKED ALL DRESSING W NS BEFORE REMOVING THEM. CLEANSED WOUNDS W NS AND GAUZE. PAT DRY W GAUZE. APPLIED HYDROGEL, COVERED W ADAPTIVE DRESSING, AND DRY DRESSING WRAP W KERLIX ROLLS. AND SECURED W TAPE. PATIENT TOLERATED IT WELL. AFTER I HELPED BURGLAR ALARM MECHANIC REPOSITION PATIENT. BED IN LOW POSITION.CALL LIGHT WITHIN REACH. WILL CONTINUE TO MONITOR THE PATIENT.
[2017-11-07] MEDS: NACL 0.9% 1,000 ML IV SCH (10:54)
--- NOTE | 2017-11-07 11:58 | NUR ---
CLINICAL REVIEW DONE. SPOKE WITH ALEXANDRE AT [facility]. AT PRESENT NO BEDS. FAXED INQUIRY TO HER AT [phone]. PHONE [phone].
[2017-11-07 12:00] VITALS: BP 131/66
--- NOTE | 2017-11-07 12:58 | NUR ---
ADMINISTERED MEDS. PATIENT TOLERATED WELL. NO COMPLAINTS AT THIS TIME. WILL CONTINUE TO MONITOR THE PATIENT,
--- NOTE | 2017-11-07 13:00 | NUR ---
PATIENT CURRENTLY SLEEPING. NO SIGNS OF DISTRESS ON ROOM AIR. BED IN LOW POSITION. WILL CONTINUE TO MONITOR THE PATIENT.
--- NOTE | 2017-11-07 13:19 | NUR ---
RECEIVED A CALL FROM KATIE FROM [facility], (c) [phone]. HE SAID HE COULD TAKE THE PATIENT, BUT CANNOT IF HE IS ON ISOLATION, HAS TO BE COLONIZES. DR. DYAN ABRAMS.
--- NOTE | 2017-11-07 15:00 | NUR ---
PATIENT IS AWAKE. CONFUSED D/T HX OF DEMENTIA (BASELINE). NO SIGNS OF DISTRESS ON ROOM AIR. BED IN LOW POSITION. CALL LIGHT WITHIN REACH. WILL CONTINUE TO MONITOR THE PATIENT.
[2017-11-07 16:00] VITALS: BP 151/67
--- NOTE | 2017-11-07 16:30 | NUR ---
LAYLA AT BEDSIDE. ANSWERED ALL QUESTIONS AT THIS TIME. PATIENT HAS NO COMPLAINTS AT THIS TIME. BED IN LOW POSITION. CALL LIGHT WITHIN REACH. WILL CONTINUE TO MONITOR THE PATIENT.
[2017-11-07] MEDS: WARFARIN 2.5 MG TAB PO SCH (17:00)
--- NOTE | 2017-11-07 17:00 | NUR ---
DID NOT ADMINISTER COUMADIN, INR IS 3.2. DOCTOR IS AWARE, HE TALKED TO PHARMACY AND PHARMACY WILL RECHECK INR.
--- NOTE | 2017-11-07 19:25 | NUR ---
GAVE BEDSIDE REPORT TO READING SPECIALIST NURSE. PATIENT IS IN STABLE CONDITION.
--- NOTE | 2017-11-07 19:30 | NUR ---
RECEIVED PT REPORT AT BEDSIDE FROM DAY SHIFT NURSE TONJA. PT AAO X1. PT IS ON RA. NO S/S OF DISTRESS. NO SOB. NO PAIN AT THIS TIME. BED LOWERED CALL LIGHT WITHIN REACH WILL CONTINUE TO MONITOR. PT HAS DEMENTIA.
[2017-11-07 22:00] VITALS: BP 139/83
--- NOTE | 2017-11-07 23:03 | NUR ---
CT CALLED UNABLE TO DO CT D/T PATIENT MOVING, UNABLE TO STAY STILL. WILL FOLLOW UP WITH
[2017-11-07] MEDS ORDERED: MEROPENEM 500 MG VIAL IV ONE (23:18)
[2017-11-07] MEDS: MEROPENEM 500 MG in NACL 0.9% 50 ML IV SCH (23:25)
[2017-11-08] VITALS: BP 163/75
--- NOTE | 2017-11-08 | NUR ---
ASSESSED PT. PT IS SLEEPING WILL CONTINUE TO MONITOR.
--- NOTE | 2017-11-08 00:32 | NUR ---
LET DR. SNOWDEN KNOW OF PT UNABLE TO DO CT OF HEAD D/T PATIENT MOVING AROUND. IS AWARE.
[2017-11-08 04:00] VITALS: BP 134/71
--- NOTE | 2017-11-08 05:00 | NUR ---
MEDICATED PT. PT AWAKE. WILL CONTINUE TO MONITOR.
[2017-11-08] MEDS ORDERED: MEROPENEM 500 MG VIAL IV ONE (05:05)
[2017-11-08] MEDS: MEROPENEM 500 MG in NACL 0.9% 50 ML IV SCH ×3 (05:09→21:00)
--- NOTE | 2017-11-08 06:37 | NUR ---
DC OLD LEUNG PER DR MORENO. INSERTED NEW LEUNG AND COLLECTED URINE FOR URINALYSIS OF BACTERIA.
[2017-11-08] MEDS: PANTOPRAZOLE 40 MG TABEC PO SCH (06:46)
[2017-11-08] MEDS: NACL 0.9% 1,000 ML IV SCH (06:46)
[2017-11-08] MEDS: LEVOTHYROXINE 0.1 MG TAB PO SCH (06:46)
[2017-11-08 07:03] LABS: BASOPHILS % (AUTO) 0.4 % (0.0-2.0); EOSINOPHILS % (AUTO) 0.4 % (0.0-4.0); HEMATOCRIT 28.9 % (36-52); HEMOGLOBIN 9.6 g/dL (12.0-18.0); LYMPHOCYTES # (AUTO) 0.7 K/uL (2.0-11.5); LYMPHOCYTES % (AUTO) 9.9 % (20.5-51.1); MEAN CORPUSCULAR HEMOGLOBIN 28 pg (27-31); MEAN CORPUSCULAR HGB CONC 33 g/dL (33-37); MEAN CORPUSCULAR VOLUME 83.6 fL (80-94); MONOCYTES # (AUTO) 0.9 K/uL (0.8-1.0); MONOCYTES % (AUTO) 13.1 % (1.7-9.3); NEUTROPHILS # (AUTO) 5.5 K/uL (1.8-7.7); NEUTROPHILS % (AUTO) 76.2 % (42.2-75.2); PLATELET COUNT (AUTO) 151 K/uL (140-450); RED BLOOD CELL COUNT(AUTO) 3.46 MIL/uL (4.20-6.10); RED CELL DISTRIBUTION WIDTH 16.9 % (11.6-13.7); WHITE BLOOD COUNT (AUTO) 7.3 K/uL (4.8-10.8)
[2017-11-08 07:28] LABS: MAGNESIUM 1.6 mg/dL (1.8-2.4); PHOSPHORUS 3.2 mg/dL (2.5-4.9)
--- NOTE | 2017-11-08 07:36 | NUR ---
RECEIVED REPORT FROM SWING GRINDER RN. PATIENT IS AAOX1, HAS NO SIGNS AND SYMPTOMS OF ACUTE DISTRESS NOTED AT THIS TIME. PATIENT HAS IV TO THE LEFT AC 20G, INFUSING NS AT 60 ML/HR. SITE IS CLEAN DRY, PATENT AND INTACT. PATIENT HAS DRESSINGS ON BILATERAL FOREARM DUE TO SELF INFLICTED WOUNDS. DRESSINGS ARE CLEAN AND DRY. HAS LEUNG CATHETER THAT IS DRAINING TO GRAVITY. DISCUSSED PLAN OF CARE WITH PATIENT BUT CONSTANT REINFORCEMENT IS NEEDED. SIDE RAILS UP X3, BED IN LOWEST POSITION, CALL LIGHT WITHIN REACH. WILL CONTINUE TO MONITOR.
--- NOTE | 2017-11-08 07:36 | NUR ---
GAVE REPORT TO DAYSHIFT NURSE FOR CONTINUITY OF CARE.
[2017-11-08 07:38] LABS: ANION GAP 12.2 (8-16); CARBON DIOXIDE 23.7 mmol/L (21-32); CHLORIDE 102 mmol/L (98-107); GLUCOSE 97 mg/dL (74-106); POTASSIUM 3.9 mmol/L (3.5-5.1); SODIUM SERUM 134 mmol/L (136-145); UREA NITROGEN, BLOOD 14 mg/dL (7-18)
[2017-11-08 08:00] VITALS: BP 121/68
[2017-11-08 08:38] LABS: PROTHROMBIN TIME 28.8 secs (10.8-13.4)
[2017-11-08] MEDS: SKINTEGRITY HYDROGEL TP SCH (09:00)
[2017-11-08] MEDS: QUEtiapine FUMARATE 25 MG TAB PO SCH ×2 (09:25→20:49)
[2017-11-08] MEDS: METOPROLOL SUCCINATE 50 MG TABER PO SCH (09:26)
[2017-11-08 12:00] VITALS: BP 143/65
[2017-11-08] MEDS ORDERED: MAG SULF 2000 MG/WATER PREMIX 50 ML IV SCH (15:55)
[2017-11-08 16:00] VITALS: BP 127/72
[2017-11-08] MEDS: WARFARIN 2.5 MG TAB PO SCH (17:45)
--- NOTE | 2017-11-08 19:31 | NUR ---
ENDORSED PATIENT TO SUPERVISOR BACKFILLING RN FOR CONTINUITY OF CARE. PATIENT IN STABLE CONDITION.
--- NOTE | 2017-11-08 19:32 | NUR ---
RECEIVED PT REPORT FROM DAYSHIFT NURSE FOR CONTINUITY OF CARE. PT IS AAO X2. IV NOTED LAC 20G NS 60ML/HR. ON ROOM AIR. NO SOB. NO S/S OF DISTRESS. BED LOWERED CALL LIGHT WITHIN REACH. WILL CONTINUE TO MONITOR.
[2017-11-08 20:01] VITALS: BP 121/77
--- NOTE | 2017-11-08 20:30 | NUR ---
MEDICATED PT. PT AWAKE AO X2. PT HAPPY AND SINGING. WILL CONTINUE TO MONITOR.
--- NOTE | 2017-11-08 23:00 | NUR ---
PATIENT SLEEPING. WILL CONTINUE TO MONITOR.
[2017-11-09] VITALS: BP 147/77
--- NOTE | 2017-11-09 01:00 | NUR ---
PT SLEEPING WILL CONTINUE TO MONITOR. NO SOB. NO S/S OF DISTRESS. WILL CONTINUE TO MONITOR.
--- NOTE | 2017-11-09 04:00 | NUR ---
ASSESSED PT VITALS. PT VITALS WNL. WILL CONTINUE TO MONITOR.
[2017-11-09] MEDS: MEROPENEM 500 MG in NACL 0.9% 50 ML IV SCH ×2 (04:34→13:21)
[2017-11-09] MEDS ORDERED: MEROPENEM 500 MG VIAL IV ONE (04:38)
[2017-11-09] MEDS: LEVOTHYROXINE 0.1 MG TAB PO SCH (05:49)
[2017-11-09] MEDS: NACL 0.9% 1,000 ML IV SCH ×2 (05:49→13:18)
[2017-11-09] MEDS: PANTOPRAZOLE 40 MG TABEC PO SCH (05:49)
[2017-11-09 06:05] VITALS: BP 148/73
[2017-11-09 06:41] LABS: BASOPHILS % (AUTO) 0.5 % (0.0-2.0); EOSINOPHILS # (AUTO) 0.1 K/uL (0-0.4); EOSINOPHILS % (AUTO) 1.1 % (0.0-4.0); HEMATOCRIT 29.3 % (36-52); HEMOGLOBIN 9.8 g/dL (12.0-18.0); LYMPHOCYTES % (AUTO) 14.4 % (20.5-51.1); MEAN CORPUSCULAR HEMOGLOBIN 28 pg (27-31); MEAN CORPUSCULAR HGB CONC 33 g/dL (33-37); MEAN CORPUSCULAR VOLUME 83.6 fL (80-94); MONOCYTES # (AUTO) 0.8 K/uL (0.8-1.0); PLATELET COUNT (AUTO) 166 K/uL (140-450); RED CELL DISTRIBUTION WIDTH 17.4 % (11.6-13.7); WHITE BLOOD COUNT (AUTO) 6.9 K/uL (4.8-10.8)
[2017-11-09 07:25] LABS: ANION GAP 11.5 (8-16); CARBON DIOXIDE 24.4 mmol/L (21-32); CHLORIDE 102 mmol/L (98-107); GLUCOSE 105 mg/dL (74-106); POTASSIUM 3.9 mmol/L (3.5-5.1); SODIUM SERUM 134 mmol/L (136-145); UREA NITROGEN, BLOOD 16 mg/dL (7-18)
--- NOTE | 2017-11-09 07:36 | NUR ---
ENDORSED REPORT TO DAY SHIFT NURSE FOR CONTINUITY OF CARE.
[2017-11-09 07:39] LABS: PHOSPHORUS 3.4 mg/dL (2.5-4.9)
[2017-11-09 08:00] VITALS: BP 143/61
--- NOTE | 2017-11-09 08:00 | NUR ---
INITIAL ASSESSMENT PERFORMED. RESIDENT ALERT WITH CONFUSION AND ABLE TO MAKE NEEDS KNOWN. NO ACUTE DISTRESS NOTED. LUNG SOUNDS CLEAR PT ON ROOM AIR. BOWEL SOUNDS ACTIVE. PATIENT ON SOFT DIET. LAC 20G INFUSING NS @60ML/HR. PATENT AND INTACT. PATIENT DENIES PAIN AT THIS TIME. VSS.PATIENT WITH KERLIX WRAPS TO BILAT FOREARM LEFT THIGH WITH DRY DRESSING. PATIENT NOTED WITH LEFT HEEL BLISTER AND RIGHT HEEL NONBLANCHABLE REDNESS. WILL INFORM WOUND CARE NURSE FOR REASSESSMENT. HEELS FLOATED TO OFFLOAD PRESSURE. DR MA IN ROOM AND AWARE OF PRESSURE SITE. PATIENT BED BOUND. DISCUSSED PLAN OF CARE WITH PATIENT AT BEDSIDE. PATIENT UNABLE TO UNDERSTAND. FREQUENT VISUAL CHECKS.ORIENTED PATIENT TO ROOM . CALL LIGHT WITHIN REACH. WILL CONT TO MONITOR.
[2017-11-09] MEDS: METOPROLOL SUCCINATE 50 MG TABER PO SCH (08:28)
[2017-11-09] MEDS: QUEtiapine FUMARATE 25 MG TAB PO SCH (08:29)
[2017-11-09 08:31] LABS: PROTHROMBIN TIME 19.2 secs (10.8-13.4)
[2017-11-09] MEDS: SKINTEGRITY HYDROGEL TP SCH (09:00)
--- NOTE | 2017-11-09 10:30 | NUR ---
PATIENT ALERT IN BED . NO ACUTE DISTRESS NOTED. HEELS OFFLOADED. WILL CONT TO MONITOR
[2017-11-09 12:00] VITALS: BP 147/89
--- NOTE | 2017-11-09 13:00 | NUR ---
PATIENT ALERT AND ABLE TO MAKE SIMPLE NEEDS KNOWN. NO ACUTE DISTRESS NOTED. NO SOB. HEELS OFF LOADED. PATIENT T AND R . FREQUENT VISUAL CHECKS. WILL CONT TO MONITOR.
--- NOTE | 2017-11-09 14:00 | NUR ---
PERFORMED WOUND CARE AND TOOK PICTURES OR WOUNDS. REBECCA IN TO SEE PATIENT WELL. WILL CONT TO MONITOR
[2017-11-09] MEDS ORDERED: QUET25TA46 PO (14:38)
[2017-11-09] MEDS ORDERED: WARF2.5T1 PO (14:38)
[2017-11-09] MEDS ORDERED: MERO500P2 IV ×2 (14:38→14:54)
[2017-11-09] MEDS ORDERED: LACT10CA PO (14:38)
--- NOTE | 2017-11-09 14:46 | NUR ---
11/09/17 RD FOLLOW UP COMPLETED PLEASE REFER TO NUTRITION PROGRESS NOTE UNDER CARE ACTIVITY FOR ESTIMATED NUTRITION NEEDS. RD RECOMMENDATIONS: 1. CONTINUE SOFT DIET TOLERATED 2. ENCOURAGE INCREASE PO INTAKE 3. RD WILL F/U 3-5 DAYS; MODERATE RISK. FAISAL VACA, RD
[2017-11-09] MEDS ORDERED: LACT1.4C PO (14:55)
--- NOTE | 2017-11-09 15:16 | NUR ---
[place] [facility] [phone] PHONE [phone]
[2017-11-09 16:00] VITALS: BP 149/85
--- NOTE | 2017-11-09 16:00 | NUR ---
SPOKE WITH NEPHEW KATIE AND ASKED HIM TO PAY FOR THE TRANSPORT , KATIE STATED HE HAS NO MONEY AND WONT PAY FOR IT.
--- NOTE | 2017-11-09 16:00 | NUR ---
PATIENT TO DISCHARGE . CM TO FIND PLACEMENT FOR PATIENT. WILL F/U.
--- NOTE | 2017-11-09 16:04 | NUR ---
1530 SPOKE WITH KATIE AVALOS NEPHEW AND HE IS IN AGREEMENT WITH PT GOING TO [facility] IF NEEDED. INFORMED HIM THAT [facility] IN [place] DENIED ADMISSION.
--- NOTE | 2017-11-09 16:39 | NUR ---
CN REPORT CHANGE OF SKIN CONDITION TO BILATERAL HEELS. SKIN ASSESSMENT DONE WITH PRIMARY RN WITH RESULT OF: LEFT HEEL PRESSURE INJURY STAGE 2, DRY BLISTER WITH 3X3 CM ,SKIN INTACT AND SURROUNDING REDNESS 5X5 CM. RIGHT HEEL PRESSURE INJURY STAGE 1, NON-BLANCHABLE REDNESS 3X5 CM WITH SURROUNDING REDNESS 4X5.5 CM. RECOMMENDATIONS: APPLY SKIN PREP TO BILATERAL HEELS AND APPLY HEEL RAISER TO BILATERAL HEELS AT ALL TIMES. INSTRUCTIONS (ALL PRESSURE INJURY INTERVENTIONS ) GIVEN TO PRIMARY RN AND PT. PT IS FORGETFUL, REQUIRE REINFORCE TEACHING.
--- NOTE | 2017-11-09 16:49 | NUR ---
[place] [facility]CEIVED A CALL FROM ALEXIA [place] [facility] THE PATIENT. HE CAN GO TO ROOM [address] UNDER DR. Kim BANERJEE AFTER 7P.M. 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 SHE WILL ARRANGE TRANSPORT. I GAVE HER THE PHONE NUMBER TO [facility] [place],[phone].
[2017-11-09] MEDS ORDERED: WARFARIN 2.5 MG TAB PO SCH (17:00)
--- NOTE | 2017-11-09 17:02 | NUR ---
CALLED [facility] AND ARRANGED TRANSPORT TO [facility] [place] [facility]ICER REFORMATORY TIME AFTER 7PM CONFIRMATION #[id number]
--- NOTE | 2017-11-09 17:30 | NUR ---
I GO A CALL FROM [facility] STATED THEY CAN TAKE PATIENT TO [facility] AND THEY NEED THE PCS FORM TO BE FAXED ,GOOD ENOUGH TO MENTION THAT CONTACT ISOLATION , UNABLE TO MAKE NEEDS KNOWN AND FALL RISK . 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
--- NOTE | 2017-11-09 18:30 | NUR ---
CALLED IN REPORT TO [facility] AND SPOKE TO CARTER. DISCUSSED PLAN OF CARE WITH HER PATIENT TO BE DISCHARGING [facility] AT 8PM TRANSPORTATION ARRANGED.
--- NOTE | 2017-11-09 19:20 | NUR ---
ENDORSED REPORT TO SHOT HOLE DRILLER NURSE. PATIENT STABLE.
--- NOTE | 2017-11-09 19:21 | NUR ---
INITIAL ASSESSMENT PERFORMED. PT ALERT WITH CONFUSION AND ABLE TO MAKE NEEDS KNOWN. NO ACUTE DISTRESS NOTED. LUNG SOUNDS CLEAR PT ON ROOM AIR. BOWEL SOUNDS ACTIVE. PATIENT ON SOFT DIET. LAC 20G INFUSING WELL, PATENT AND INTACT. PATIENT DENIES PAIN AT THIS TIME. VSS.PATIENT WITH KERLIX WRAPS TO BILAT FOREARM LEFT THIGH WITH DRY DRESSING. PATIENT NOTED WITH LEFT HEEL BLISTER AND RIGHT HEEL NONBLANCHABLE REDNESS. WILL INFORM WOUND CARE NURSE FOR REASSESSMENT. HEELS FLOATED TO OFFLOAD PRESSURE. DR MA IN ROOM AND AWARE OF PRESSURE SITE. PATIENT BED BOUND. DISCUSSED PLAN OF CARE WITH PATIENT AT BEDSIDE. PATIENT UNABLE TO UNDERSTAND. FREQUENT VISUAL CHECKS.ORIENTED PATIENT TO ROOM . CALL LIGHT WITHIN REACH. WILL CONT TO MONITOR.
[2017-11-09 20:00] VITALS: BP 155/75
--- NOTE | 2017-11-09 20:15 | NUR ---
PT DISCHARGED [place] [facility] [place], ALL PAPERWORK SENT WITH PT, BELONGINGS WITH PT. IV PATENT AND INTACT, PT WILL BE RECEIVING ANTIBIOTICS IN [facility] THROUGH IV. NO S/S OF DISTRESS NOTED
[2017-11-10] MEDS ORDERED: LACTOBACILLUS RHAMNOSUS GG 1 EACH CAP PO SCH (09:00)
== END 2017-11-09 20:25 | DRG 682 ==
LOC: MED 05:35 → MTU 07:25
PROVIDERS: ADMIT Family Medicine Sports Medicine; ATTEND Family Medicine Sports Medicine
PROC: 0HDDXZZ Extraction of Right Lower Arm Skin, External Approach (ICD-10-PCS; principal; 2017-11-03)
DX: N17.0 Acute kidney failure with tubular necrosis (principal); I50.43 Acute on chronic combined systolic (congestive) and diastolic (congestive) heart failure; G93.41 Metabolic encephalopathy; E83.42 Hypomagnesemia; E87.1 Hypo-osmolality and hyponatremia; D64.9 Anemia, unspecified; E11.9 Type 2 diabetes mellitus without complications; N39.0 Urinary tract infection, site not specified; S51.811A Laceration without foreign body of right forearm, initial encounter; S51.812A Laceration without foreign body of left forearm, initial encounter; I48.2 Chronic atrial fibrillation; E03.9 Hypothyroidism, unspecified; R41.9 Unspecified symptoms and signs involving cognitive functions and awareness; F03.90 Unspecified dementia, unspecified severity, without behavioral disturbance, psychotic disturbance, mood disturbance, and anxiety; E87.6 Hypokalemia; I11.0 Hypertensive heart disease with heart failure; I25.10 Atherosclerotic heart disease of native coronary artery without angina pectoris; X78.8XXA Intentional self-harm by other sharp object, initial encounter; Z95.0 Presence of cardiac pacemaker; Z79.899 Other long term (current) drug therapy; Y93.89 Activity, other specified; Y92.89 Other specified places as the place of occurrence of the external cause; Y99.8 Other external cause status; Z79.01 Long term (current) use of anticoagulants; Z87.891 Personal history of nicotine dependence; I69.328 Other speech and language deficits following cerebral infarction; Z82.3 Family history of stroke; Z82.49 Family history of ischemic heart disease and other diseases of the circulatory system; I65.21 Occlusion and stenosis of right carotid artery
CPT/HCPCS: 36415; 71045; 73090; 80048; 80053; 81001; 82150; 83036; 83690; 83735; 83880; 84100; 84436; 84439; 84443; 84479; 84484; 85025; 85610; 85730; 87081; 87086; 87186; 93005; 93880; 96365; 96372; 97110; 97140; 99285; A6248; J0690; J1200; J1956; J2185; J2270; J3230; J3475; J3490; J7030; J7060; Q0092